=== PATIENT | female | born 1950 ===

== ENCOUNTER 2021-10-14 12:45 | Inpatient (IN) | payer OTHER ==
[~2021-10-14] VITALS: Ht 160 cm; Wt 93.0 kg
[2021-10-14] MEDS ORDERED: METFORM PO (15:25)
[2021-10-14] MEDS ORDERED: SYNTHROID50 MCG PO (15:26)
[2021-10-14] MEDS ORDERED: LISINOP PO (15:27)
[2021-10-14] MEDS ORDERED: HYDROCHLOROTH12.5 MG PO (15:27)
[2021-10-14] MEDS ORDERED: SIMVAST PO (15:29)
[2021-10-14] MEDS ORDERED: FIBER GUMMIES2 GM PO (15:29)
[2021-10-19] MEDS ORDERED: SIMVASTATIN5 MG (08:03)
[2021-10-19] MEDS ORDERED: ZESTRIL2.5 MG (08:04)
[2021-10-19] MEDS ORDERED: METFORMIN HCL850 MG (08:04)
[2021-10-21] MEDS ORDERED: ELIQUIS2.5 MG PO (13:16)
[2021-10-21] MEDS ORDERED: CEFADROXIL500 MG PO (13:16)
[2021-10-21] MEDS ORDERED: ACETAMINOPHEN-1 EAC2 PO (13:16)
== END 2021-10-21 17:51 | DRG 470 ==
LOC: SURG 10-19 06:24 → O/R 10-19 06:24 → SURH 10-19 10:00 → O/R 10-19 10:45 → SURG 10-19 10:51 → SURH 10-19 12:45 → SURG 10-19 13:54
PROVIDERS: ADMIT Orthopaedic Surgery; ATTEND Orthopaedic Surgery
PROC: 0SRD0J9 Replacement of Left Knee Joint with Synthetic Substitute, Cemented, Open Approach (ICD-10-PCS; principal; 2021-10-19 10:00)
DX: M17.12 Unilateral primary osteoarthritis, left knee (principal); D62 Acute posthemorrhagic anemia; M22.12 Recurrent subluxation of patella, left knee; M81.0 Age-related osteoporosis without current pathological fracture; I10 Essential (primary) hypertension; E03.8 Other specified hypothyroidism; E11.9 Type 2 diabetes mellitus without complications; Z79.4 Long term (current) use of insulin; Z20.822 Contact with and (suspected) exposure to COVID-19